=== PATIENT | female | born 1950 | race Two or more races ===

== ENCOUNTER 2019-04-16 05:44 | Day surgery (SDC) | payer OTHER ==
[~2019-04-16] VITALS: Ht 162.6 cm; Wt 65.8 kg
[2019-04-16] VITALS (10 sets, daily range): BP systolic 121–148; BP diastolic 63–80
[2019-04-16] MEDS ORDERED: ceFAZolin 1gm IVPB IVPB ONE ×2 (06:00)
[2019-04-16] MEDS ORDERED: oxyCONTIN 20mg tab ORAL ONE ×2 (06:00→09:23)
[2019-04-16] MEDS ORDERED: celeBREX 200mg Cap **SURGERY PATIENTS ONLY ORAL ONE ×2 (06:00→09:23)
[2019-04-16] MEDS ORDERED: AMLODIPINE BESYL5 MG ORAL (08:51)
[2019-04-16] MEDS ORDERED: ATORVASTATIN CA20 MG ORAL (08:51)
[2019-04-16] MEDS ORDERED: fentaNYL 100 mcg/2 mL ONE (11:50)
[2019-04-16] MEDS ORDERED: Midazolam 2mg/2ml Inj ONE (11:50)
[2019-04-16] MEDS ORDERED: EPINEPHrine 1mg/1ml Amp ONE ×2 (11:53→15:12)
[2019-04-16] MEDS ORDERED: Kenalog-40 1ml Vial ONE (11:53)
[2019-04-16] MEDS ORDERED: Ketorolac 30mg Inj ONE (11:53)
[2019-04-16] MEDS ORDERED: Bupivacaine 0.25% Inj 30ml INJ ONE (11:54)
[2019-04-16] MEDS ORDERED: Duramorph PF 5mg/10ml amp ONE (11:54)
[2019-04-16] MEDS ORDERED: Rocuronium Bromide 50mg/5ml Inj IV ONE (11:54)
[2019-04-16] MEDS ORDERED: LR 1000ml ONE (12:00)
[2019-04-16] MEDS ORDERED: NS Irrig 4000ml IRRIG ONE (12:00)
--- NOTE | 2019-04-16 12:05 | Anethesia Preoperative Eval ---
Anesthesia Pre-op PMH/ROS General Date of Evaluation: Apr 16, 2019 Time of Evaluation: 12:03 Anesthesiologist: priyank ASA Score: ASA 2 Mallampati Score Class I : Soft palate, uvula, fauces, pillars visible Class II: Soft palate, uvula, fauces visible Class III: Soft palate, base of uvula visible Class IV: Only hard plate visible Mallampati Classification: Class II Surgeon: deni Diagnosis: shoulder pain Surgical Procedure: right shoulder impingment Anesthesia History: none Family History: no anesthesia problems Allergies: Coded Allergies: No Known Allergies (Unverified , 04/15/19) Medications: see eMAR Patient NPO?: Yes NPO Date: Apr 16, 2019 NPO Time: 00:01 Past Medical History Cardiovascular: Reports: HTN; Denies: CAD, ID, valve dz, arrhythmia, other Pulmonary: Denies: asthma, COPD, JENNIFER, other Gastrointestinal/Genitourinary: Denies: GERD, CRI, ESRD, other Neurologic/Psychiatric: Denies: dementia, CVA, depression/anxiety, TIA, other Endocrine: Denies: DM, hypothyroidism, steroids, other HEENT: Denies: cataract (L), cataract (R), glaucoma, [place] (L), [place] (R), other Hematology/Immune: Denies: anemia, DVT, bleeding disorder, other Musculoskeletal/Integumentary: Reports: OA; Denies: RA, DJD, DDD, edema, other PSxH Narrative: cholecystectomy Anesthesia Pre-op Phys. Exam Physician Exam Last Vital Signs Date Time Temp Pulse Resp B/P (MAP) Pulse Ox O2 Delivery O2 Flow Rate FiO2 04/16/19 08:53 Room Air 04/16/19 08:30 97.9 59 20 146/72 96 Constitutional: NAD Neurologic: CN 2-12 intact Cardiovascular: RRR Respiratory: CTA Gastrointestinal: S/NT/ND Airway Exam Mallampati Classification 2 Mallampati Score: Class II MO: full ROM: full Teeth: missing - partial incisor removed Anesthesia Pre-op A/P Studies Pre-op Studies: EKG - SR Risk Assessment & Plan Plan: general /Peripheral nerve block Status Change Before Surgery: No Pre-Antibiotics Drug: ancef Given Within 1 Hr of Incision: Yes Time Given: 12:40 Jasmin Roman CRNA Apr 16, 2019 12:05
[2019-04-16] MEDS ORDERED: fentaNYL 100 mcg/2 mL IV PRN (12:15)
[2019-04-16] MEDS ORDERED: Metoclopramide 10mg/2ml Inj IVP PRN (12:15)
[2019-04-16] MEDS ORDERED: Acetaminophen (Non formulary) 100 ML IV ONE (12:15)
[2019-04-16] MEDS ORDERED: Neostigmine 1mg/ml 10ml Inj ONE (12:55)
[2019-04-16] MEDS ORDERED: Lidocaine 1% MPF 10mg/ml 5ml ONE (12:55)
[2019-04-16] MEDS ORDERED: ePHEDrine 50mg/ml Inj ONE (12:55)
[2019-04-16] MEDS ORDERED: Metoclopramide 10mg/2ml Inj ONE (12:55)
[2019-04-16] MEDS ORDERED: Glycopyrrolate 0.2mg/ml 1ml Vial ONE (12:55)
[2019-04-16] MEDS ORDERED: Propofol 200mg/20ml IV ONE (12:55)
[2019-04-16] MEDS ORDERED: Ropivacaine 5mg/ml Vial 30ml INJ ONE (12:56)
[2019-04-16] MEDS ORDERED: Bupivacaine w/Epi 0.5% 30ml Vial INJ ONE (13:01)
--- NOTE | 2019-04-16 13:56 | Immediate Post-Op Evaluation ---
Immediate Post-Op Evalulation Immediate Post-Op Evalulation Procedure: right shoulder SAD Date of Evaluation: Apr 16, 2019 Time of Evaluation: 13:50 IV Fluids: 800 Blood Pressure Systolic: 148 Blood Pressure Diastolic: 80 Pulse Rate: 80 Respiratory Rate: 14 O2 Sat by Pulse Oximetry: 98 Temperature (Fahrenheit): 97.0 Nausea: No Vomiting: No Complications stable Patient Status: awake, reacts, patent Hydration Status: adequate Drug: ancef Given Within 1 Hr of Incision: Yes Time Given: 12:40 Jasmin Roman CRNA Apr 16, 2019 13:56
--- NOTE | 2019-04-16 14:35 | Pre-Procedure Note/Attestation ---
Pre-Procedure Note/Attestation Complete Prior to Procedure Planned Procedure: right Procedure Narrative: shoulder arthroscopy, sad, possible rc repair Indications for Procedure Pre-Operative Diagnosis: right shoulder impigenement possible rc tear Attestation I attest that I discussed the nature of the procedure; its benefits; risks and complications; and alternatives (and the risks and benefits of such alternatives ), prior to the procedure, with the patient (or the patient's legal outside dealer sales representative). I attest that, if there was a reasonable possibility of needing a blood transfusion, the patient (or the patient's legal outside dealer sales representative) was given the [facility] standardized written summary, pursuant to the Jossue Mariama Blood Safety Act ([place] Health and Safety Code # 1645, as amended). I attest that I re-evaluated the patient just prior to the surgery and that there has been no change in the patient's H&P, except as documented below: Mitchell Matos MD Apr 16, 2019 14:35
--- NOTE | 2019-04-16 14:35 | Operative Note - PDOC ---
Operative Note Operative Note Pre-op Diagnosis: right shoulder impigenement possible rc tear Procedure: ee op report Post-op Diagnosis: same as pre-op plus Operative Findings: consistent w/pre-op dx studies Anesthesia: regional Specimen: none Complications: none Condition: stable Estimated Blood Loss: none Implant(s) used?: Yes Mitchell Matos MD Apr 16, 2019 14:35
[2019-04-16] MEDS ORDERED: Tylenol #3 tab (300mg/30mg) ORAL PRN (14:45)
[2019-04-16] MEDS ORDERED: HYDROcodone/Acetamin 5/325 tab ORAL PRN (14:45)
[2019-04-16] MEDS ORDERED: HYDROmorphone 1mg/ml Carpuject SUBQ PRN (14:45)
[2019-04-16] MEDS ORDERED: D5 1/2NS 1,000 ML IV SCH (17:00)
--- NOTE | 2019-04-16 18:00 | Operative Note - Dictated ---
DATE OF OPERATION: 04/16/2019 PREOPERATIVE DIAGNOSES: 1. Right shoulder rotator cuff tear. 2. Right shoulder impingement. POSTOPERATIVE DIAGNOSES: 1. Right shoulder full-thickness rotator cuff tear. 2. Right shoulder superior labral tear. 3. Right shoulder subacromial bursitis/impingement syndrome. PROCEDURES: 1. Right shoulder arthroscopy and extensive intraarticular debridement. 2. Right shoulder subacromial decompression bursectomy. 3. Right shoulder arthroscopic rotator cuff repair. SURGEON: Mitchell Matos M.D. ANESTHESIA: Interscalene with general. INDICATION FOR PROCEDURE: The patient is a pleasant female who has got progressive right shoulder pain. Had MRI, which showed some tears of the rotator cuff. Failed conservative treatment. Elected to undergo right shoulder arthroscopy, rotator cuff repair versus debridement with concurrent subacromial decompression bursectomy. Risks, limitations, expectations, and complications of procedure were discussed in detail. All questions addressed. DESCRIPTION OF PROCEDURE: After informed consent was obtained, the patient was brought to the operating room. The patient was placed under interscalene general anesthesia. Right shoulder was prepped and draped in a sterile manner. Time-out was performed. Inferolateral stab incision was then made. Trocar was introduced into the glenohumeral joint. There was significant fraying of the superior labrum. There was no chondral damage. The subscapularis was intact. The biceps was intact. The undersurface of the rotator cuff had a high-grade almost full-thickness rotator cuff. Shaver was then placed through this area into the joint. Extensive debridement of the labrum and the soft tissue lateral to the articular margin was performed. The camera was then placed in the subacromial space. Complete bursectomy was performed. The undersurface of the acromion was identified. The acromioplasty was started from lateral to medial completed from posterior to anterior. Once that was done, the bursa was excised posteriorly. The rotator cuff was identified. Two arthroscopic anchors were then placed. The camera was repositioned in the glenohumeral joint and the footprint was recreated. At that point, the instruments were removed. Portal sites were closed with 3-0 Monocryl sutures. Steri-Strips and a sterile dressing were applied. ESTIMATED BLOOD LOSS: None. COMPLICATIONS: None. SPECIMENS: None. IMPLANTS: Two JuggerKnot anchors. Mitchell Matos M.D. DR: SOLE JOB#: [id number] CC:
[2019-04-17 10:33] VITALS: BP 124/70
--- NOTE | 2019-04-17 10:33 | 48 Hour Post Anesthesia Eval ---
Post Anesthesia Evaluation Procedure: right shoulder SAD Date of Evaluation: Apr 17, 2019 Time of Evaluation: 10:33 Blood Pressure Systolic: 124 0: 70 Pulse Rate: 84 Respiratory Rate: 14 O2 Sat by Pulse Oximetry: 100 Airway: patent Nausea: No Vomiting: No Hydration Status: adequate Cardiopulmonary Status: stable Mental Status/LOC: patient returned to baseline Follow-up Care/Observations: na Post-Anesthesia Complications: none Follow-up care needed: N/A Jasmin Roman CRNA Apr 17, 2019 10:33
== END 2019-04-16 15:25 | disposition home or self-care (01) ==
LOC: SUR 05:44
DX: M75.111 Incomplete rotator cuff tear or rupture of right shoulder, not specified as traumatic (principal); S43.431A Superior glenoid labrum lesion of right shoulder, initial encounter; X58.XXXA Exposure to other specified factors, initial encounter; M75.41 Impingement syndrome of right shoulder; I10 Essential (primary) hypertension; Z90.49 Acquired absence of other specified parts of digestive tract; M19.90 Unspecified osteoarthritis, unspecified site
CPT/HCPCS: 29823; 29827; C1713; J0171; J0690; J1885; J2250; J2405; J2704; J2710; J2765; J2795; J3010; 94003; 94150